=== PATIENT | female | born 1970 | race African-American/Black ===

== ENCOUNTER → 2016-09-18 16:43 | Emergency (ER) | payer OTHER ==
[2016-09-18 16:31] LABS: INFLUENZA A POS (NEG); INFLUENZA B NEG (NEG)
[~2016-09-18 16:43] MED LIST: CIPRO PO; DIFLUCAN200 MG PO; FLAGYL250 M1 PO; HYDROCHLOROTHIA25 MG PO; LISINOPRIL-HCTZ1 T14; LORTAB 7.5-3251 EACH PO; MEDROL4 MG/DOSE- PO; MORGIDOX100 MG PO; MOTRIN600 MG PO; NORVASC10 MG PO; PYRIDIUM PO; ZESTORETIC PO; ZESTRIL40 MG PO
== END | disposition home or self-care (01) ==
LOC: CFTX 16:43
PROVIDERS: Nurse Practitioner Family
DX: J10.1 Influenza due to other identified influenza virus with other respiratory manifestations (principal); I10 Essential (primary) hypertension; Z90.710 Acquired absence of both cervix and uterus; Z88.2 Allergy status to sulfonamides; F17.210 Nicotine dependence, cigarettes, uncomplicated
CPT/HCPCS: 87804; 99282